=== PATIENT | female | born 2000 | race Caucasian/White ===

== ENCOUNTER 2021-09-15 03:39 | Emergency (ER) | payer BC ==
[~2021-09-15] VITALS: Ht 170.2 cm; Wt 61.4 kg
[2021-09-15 03:46] VITALS: BP 135/80; TEMP 97.6
[2021-09-15 04:29] LABS: BASO % 0.3 % (0.0-2.0); GRAN # 8.8 K/mm3 (1.4-6.5); GRAN % 81.3 % (42.2-75.2); HEMATOCRIT 41.3 % (35.0-45.0); HEMOGLOBIN 14.3 g/dl (12.0-15.0); LYMPH # 1.1 K/mm3 (1.2-3.4); LYMPH % 10.3 % (20.0-51.0); MEAN CELL VOLUME 88 fl (80.0-95.0); MEAN CORPUSCULAR HEMOGLOBIN 30 pg (26.0-32.0); MEAN CORPUSCULAR HGB CONC 35 g/dl (33.0-37.0); MEAN PLATELET VOLUME 10.1 fl (7.4-10.4); MONO # 0.8 K/mm3 (0.1-0.6); MONO % 7.7 % (1.7-9.3); PLATELET COUNT 250 K/mm3 (130-400); RED BLOOD COUNT 4.71 M/mm3 (4.10-5.30); REDCELL DISTRIBUTION WIDTH-CV 12.3 % (11.5-14.5)
[2021-09-15 04:33] LABS: COLLECTION METHOD CLEAN CATCH
[2021-09-15 04:45] LABS: MUCOUS Present /lpf; PH 6 (5-8); URINE APPEARANCE Clear; URINE BACTERIA None Seen /hpf; URINE BILIRUBIN Negative (NEGATIVE); URINE BLOOD Negative (NEGATIVE); URINE COLOR Yellow; URINE GLUCOSE Negative (NEGATIVE); URINE KETONE 2+ (NEGATIVE); URINE LEUKOCYTE ESTERASE Negative (NEGATIVE); URINE NITRATE Negative (NEGATIVE); URINE PROTEIN(semi-quant) Negative (NEGATIVE); URINE RBC 0-2 /hpf
[2021-09-15 05:01] LABS: ALBUMIN 3.9 gm/dL (3.5-5.0); BILIRUBIN,TOTAL 0.6 mg/dL (0.2-1.2); CALCIUM 9.4 mg/dL (8.4-10.2); CREATININE, serum 0.83 mg/dL (0.57-1.11); POTASSIUM 3.5 mmol/L (3.5-4.5); TOTAL PROTEIN 7.7 gm/dL (6.2-8.1)
[2021-09-15 07:39] VITALS: PULSE 87
== END 2021-09-15 07:39 | disposition home or self-care (01) ==
LOC: COL.ER 03:39
PROVIDERS: Personal Emergency Response Attendant
DX: B34.9 Viral infection, unspecified (principal)
CPT/HCPCS: J2060; J2405; J7030

== ENCOUNTER 2022-07-16 18:21 | Emergency (ER) | payer BC ==
[~2022-07-16] VITALS: Ht 170.2 cm; Wt 61.4 kg
[2022-07-16 18:26] VITALS: TEMP 98.4
[2022-07-16 19:45] VITALS: BP 119/79; PULSE 78
[2022-07-19] MEDS ORDERED: BIRTH CONTROL (09:29)
== END 2022-07-16 19:46 | disposition home or self-care (01) ==
LOC: COL.ER 18:21
DX: Z20.3 Contact with and (suspected) exposure to rabies (principal)

== ENCOUNTER 2022-07-30 11:45 | Outpatient (RCR) | payer BC ==
[2022-07-19 08:45] VITALS: BP 109/70; PULSE 62; TEMP 98.2
[2022-07-23 09:10] VITALS: BP 98/65; PULSE 64; TEMP 97.6
[~2022-07-30] VITALS: Ht 170.2 cm; Wt 65.0 kg
[~2022-07-30 11:45] MED LIST: BIRTH CONTROL
[2022-07-30 11:56] VITALS: BP 109/75; PULSE 92; TEMP 97.5
== END 2022-07-30 12:10 | disposition home or self-care (01) ==
LOC: EUO 11:45
DX: Z23 Encounter for immunization (principal)

== ENCOUNTER 2022-12-10 22:32 | Emergency (ER) | payer BC ==
[~2022-12-10] VITALS: Ht 167.6 cm; Wt 61.4 kg
[2022-12-10 22:40] VITALS: BP 123/86; TEMP 98.1
[2022-12-10 23:40] VITALS: PULSE 89
== END 2022-12-10 23:40 | disposition home or self-care (01) ==
LOC: COL.ER 22:32
DX: M25.561 Pain in right knee (principal); W50.0XXA Accidental hit or strike by another person, initial encounter; Y92.322 Soccer field as the place of occurrence of the external cause; Y93.66 Activity, soccer
CPT/HCPCS: L1830; L1846